=== PATIENT | male | born 1960 | race Caucasian/White ===

== ENCOUNTER 2017-12-30 21:53 | Emergency (ER) | payer OTHER ==
[~2017-12-30] VITALS: Ht 167.6 cm; Wt 104.3 kg
[2017-12-30] MEDS ORDERED: XANAX1 MG PO (22:04)
[2017-12-30 22:15] LABS: ABSOLUTE EOSINOPHILS 0.4 thou/uL (0.0-0.7); ABSOLUTE MONOCYTES 0.5 thou/uL (0.0-1.2); ABSOLUTE NEUTROPHILS 3.9 thou/uL (1.6-8.1); BASOPHILS 0.6 %; EOSINOPHILS 5.3 %; HEMATOCRIT 44.5 % (42.0-52.0); HEMOGLOBIN 15.2 gm/dL (14.0-18.0); LYMPHOCYTES 37.9 %; MCH 28.3 pg (26.0-34.0); MCHC 34.2 g/dL (28.0-37.0); MCV 82.7 fL (80.0-100.0); MONOCYTES 6.8 %; NUCLEATED RBCS 0 /100WBC; PLATELET COUNT* 242 thou/uL (150-400); POLYS 49.4 %; RBC 5.38 mil/uL (4.50-6.00); RDW-CV 13.9 % (10.5-14.5)
[2017-12-30 22:20] LABS: ANION GAP 9 mmol/L (7-16); BUN 13 mg/dL (7-18); CHLORIDE 105 mmol/L (98-107); CO2 28 mmol/L (21-32); CREATININE 0.9 mg/dL (0.6-1.3); GLUCOSE 120 mg/dL (70-99); POTASSIUM 3.7 mmol/L (3.5-5.1); SODIUM 142 mmol/L (136-145)
[2017-12-30 22:22] LABS: INR 1.1; PROTIME 10.7 Seconds (9.20-11.50)
[2017-12-30 22:30] LABS: ALKALINE PHOSPHATASE 70 U/L (46-116); SGOT 26 U/L (15-37); SGPT 33 U/L (30-65); TOTAL BILIRUBIN 0.5 mg/dL (<0.1-1.0); TOTAL PROTEIN 7.5 g/dL (6.4-8.2); TROPONIN-I LEVEL <0.06 ng/mL (<0.06)
[2017-12-30] MEDS ORDERED: HYDROCODONE-AP1 EAC6 PO (22:58)
[2017-12-30] MEDS ORDERED: PROCTOFOAM-HC 110 GM TOP (22:58)
[2017-12-30 23:05] VITALS: BP 130/80
== END 2017-12-30 23:07 | disposition home or self-care (01) ==
LOC: M.ERS 21:53
PROVIDERS: Emergency Medicine
DX: K64.5 Perianal venous thrombosis (principal)